=== PATIENT | male | born 1985 | race Caucasian/White ===

== ENCOUNTER → 2016-10-08 | Outpatient (CLI) | payer BC ==
[2016-10-08 19:17] LABS: ALT 68 U/L (21-72); AST 32 U/L (17-59); Alkaline Phosphatase 110 U/L (38-126); Anion Gap 14 mmol/L; Blood Urea Nitrogen 17 mg/dL (9-20); Calcium 10.1 mg/dL (8.4-10.2); Carbon Dioxide 28 mmol/L (22-30); Chloride 102 mmol/L (98-107); Cholesterol 227 mg/dL (<200); Glucose 85 mg/dL (74-99); HDL Cholesterol 46 mg/dL (40-60); Non-African American GFR(MDRD) >60 (>60 ml/min/1.73 sqM); Potassium 4.2 mmol/L (3.5-5.1); Sodium 144 mmol/L (137-145); Total Bilirubin 1.1 mg/dL (0.2-1.3); Total Protein 8.4 g/dL (6.3-8.2); Triglycerides 183 mg/dL (<150)
[2016-10-08 19:26] LABS: Basophils # (A) 0.1 k/uL (0-0.2); Basophils % (A) 1 %; CH 29.9; CHCM 33.4; Eosinophils # (A) 0.2 k/uL (0-0.7); Eosinophils % (A) 3 %; HCT 49.8 % (39.0-53.0); Luc % (Auto) 2; Lymphocytes # (A) 1.7 k/uL (1.0-4.8); Lymphocytes % (A) 27 %; MCH 28.9 pg (25.0-35.0); MCHC 32.2 g/dL (31.0-37.0); MCV 89.8 fL (80.0-100.0); Mean Platelet Volume 8.6; Monocytes # (A) 0.3 k/uL (0-1.0); Monocytes % (A) 4 %; Neutrophils % (A) 63 %; RBC 5.55 m/uL (4.30-5.90); RDW 13.2 % (11.5-15.5); WBC 6.4 k/uL (3.8-10.6); WBC (Perox) 6.48
== END ==
LOC: MMGSC 10:27
PROVIDERS: ATTEND Family Medicine
DX: I10 Essential (primary) hypertension (principal); E78.5 Hyperlipidemia, unspecified
CPT/HCPCS: 36415; 80053; 80061; 84439; 84443; 85025

== ENCOUNTER → 2022-06-12 | Outpatient (CLI) | payer BC ==
--- NOTE | 2022-06-12 08:41 | US ---
EXAMINATION TYPE: US liver DATE OF EXAM: 06/12/2022 COMPARISON: CT abdomen pelvis 01/03/2011. CLINICAL HISTORY: R94.5 ABN RESULTS OF LIVER FUNCTION STUDIES. TECHNIQUE: Multiple sonographic images of the right upper quadrant are obtained. FINDINGS: EXAM MEASUREMENTS: Liver Length: 15.9 cm Gallbladder Wall: 0.13 cm CBD: 0.39 cm Right Kidney: 11.8 x 4.6 x 5.1 cm Pancreas: Tail obscured by overlying bowel gas Liver: Slightly heterogeneous, echogenic. No focal mass. Gallbladder: Slightly mobile echogenic foci 1.1cm . No pericardial fluid or wall thickening. Evidence for sonographic Alas's sign: No CBD: wnl Right Kidney: wnl . No hydronephrosis, shadowing calculi, or contour deforming solid mass. IMPRESSION: 1. Heterogenous hyperechoic appearance to the liver without focal mass. This is most commonly is see n with hepatic steatosis. 2. Cholelithiasis without evidence for acute cholecystitis.
== END | disposition home or self-care (01) ==
LOC: RADUSWWP 06:43
PROVIDERS: ATTEND Family Medicine
DX: K80.20 Calculus of gallbladder without cholecystitis without obstruction (principal); R94.5 Abnormal results of liver function studies
CPT/HCPCS: 76705

== ENCOUNTER → 2024-09-17 | Outpatient (CLI) | payer BC ==
--- NOTE | 2024-09-17 08:05 | US ---
EXAMINATION TYPE: US abdomen limited DATE OF EXAM: 09/17/2024 COMPARISON: 06/12/22 CLINICAL INDICATION: Male, 38 years old with history of R10.11 right upper quadrant pain; RUQ pain TECHNIQUE: Grayscale and color Doppler imaging of the right upper quadrant was performed. FINDINGS: EXAM MEASUREMENTS: Liver Length: 14.6 cm Gallbladder Wall: 0.2 cm CBD: 0.4 cm Right Kidney: 10.6 x 5.3 x 5.1 cm PRODUCT ANALYST NOTES: Pancreas: tail obscured by overlying bowel gas Liver: wnl Gallbladder: One singular gallstone seen in neck measuring 2.0cm Evidence for sonographic Alas's sign: No CBD: wnl Right Kidney: wnl The visualized portions of the pancreas are unremarkable. The tail is obscured by overlying bowel gas . Liver is unremarkable without focal lesion. Single large gallstone within the gallbladder neck pedro pablo uring 2.0 cm. No wall thickening or surrounding fluid. Negative sonographic Alas's sign. Common marj e duct is within normal limits. Right kidney demonstrates no hydronephrosis, solid mass, shadowing ca lculus. IMPRESSION: Cholelithiasis without ultrasound evidence for acute cholecystitis. [facility] Germán Montemayor, , 09/17/2024 8:02 AM
== END | disposition home or self-care (01) ==
LOC: RADUSWWP 07:15
PROVIDERS: ATTEND Family Medicine
DX: K80.20 Calculus of gallbladder without cholecystitis without obstruction (principal)
CPT/HCPCS: 76705

== ENCOUNTER 2025-01-04 08:36 | Day surgery (SDC) | payer BC ==
[~2025-01-04 08:36] MED LIST: HYDROmorphone 0.5 MG/0.5 ML SYRINGE IVP PRN; LIDOCAINE 1% (10MG/ML) FOR IV START INTRADERMA PRN; droPERidol 2.5 MG/ML VIAL IVP ONE
--- NOTE | 2025-01-04 09:04 | P.GSHP ---
History of Present Illness H&P Date: 01/04/25 Chief Complaint: Chronic cholecystitis 39-year-old male here for elective cholecystectomy. Patient last seen in the office in October. Patient has had intermittent right upper quadrant pains. Ultrasound shows a 2 cm gallstone in the neck of the gallbladder. He has intermittently had some elevated liver enzymes. Per patient recent labs were normal. Denies any change in the color of his skin urine or stool. Past Medical History Past Medical History: COPD, Hypertension, Sleep Apnea/CPAP/BIPAP Additional Past Medical History / Comment(s): seasonal allergies. dx copd long ago - no inhalers now. asthma r/t allergies no meds. 2nd hand smoke as a youth. hx of cpap use, recent wt loss .retested- awaiting results History of Any Multi-Drug Resistant Organisms: None Reported Additional Past Surgical History / Comment(s): colonscopy, wisdom teeth Past Anesthesia/Blood Transfusion Reactions: No Reported Reaction Smoking Status: Never smoker - Past Family History Mother Additional Family Medical History / Comment(s): pulmonary issues, x smoker Father Additional Family Medical History / Comment(s): x smoker Medications and Allergies Home Medications Medication Instructions Recorded Confirmed Type ALPRAZolam [Xanax] 0.5 mg PO DAILY PRN 12/30/24 12/30/24 History Cetirizine HCl [Zyrtec] 10 mg PO DAILY 12/30/24 12/30/24 History Losartan Potassium 50 mg PO DAILY 12/30/24 12/30/24 History Nasocort 1 spray NASAL DIRECTED PRN 12/30/24 12/30/24 History Unk Melatonin 1 tab PO HS 12/30/24 12/30/24 History amLODIPine BESYLATE [Amlodipine 5 mg PO DAILY 12/30/24 12/30/24 History Besylate] cloNIDine HCL [Clonidine HCl] 0.1 mg PO BID 12/30/24 12/30/24 History Allergies Allergy/AdvReac Type Severity Reaction Status Date / Time acetaminophen Allergy n/v , Verified 01/04/25 08:59 headaches diphenhydramine Allergy Rash/Hives Verified 01/04/25 08:59 Surgical - Exam Physical exam: General: Well-developed, well-nourished HEENT: Normocephalic, sclerae nonicteric Abdomen: Nontender, nondistended Extremities: No edema Neuro: Alert and oriented Assessment and Plan (1) Chronic cholecystitis Narrative/Plan: Will proceed with laparoscopic, possible open cholecystectomy at this time. Risks of bleeding, infection, bile leak, bile duct injury, retained common bile duct stone, trocar injury, conversion to an open procedure, hernia, anesthesia related complications were reviewed. The patient understands and wishes to proceed. Current Visit: Yes Status: Acute Code(s): K81.1 - CHRONIC CHOLECYSTITIS SNOMED Code(s): 43298507
[2025-01-04] MEDS: LACTATED RINGERS 1,000 ML IV SCH (09:10)
[2025-01-04] MEDS: IV FLUID CONTINUATION 1,000 ML IV ONE (09:10)
[2025-01-04] MEDS: HEPARIN SODIUM,PORCINE 5,000 UNIT/ML 1 ML VIAL SQ PRN (09:26)
[2025-01-04] MEDS: DEXAMETHASONE SOD PHOSPHATE 4 MG/ML 1 ML VIAL IV ONE (09:27)
[2025-01-04] MEDS: ONDANSETRON 4 MG/2 ML VIAL IVP ONE (09:27)
[2025-01-04] MEDS ORDERED: KETOROLAC 15 MG/ML 1 ML VIAL ONE (09:53)
[2025-01-04] MEDS ORDERED: PHENYLEPHRINE-0.9% NACL SYG 1,000 MCG/10 ML SYRINGE ONE (09:53)
[2025-01-04] MEDS ORDERED: HYDROmorphone (PF) 1 MG/ML ONE (09:53)
[2025-01-04] MEDS ORDERED: LIDOCAINE 1% INJ 10MG/ML (20 ML MDV) ONE (09:53)
[2025-01-04] MEDS ORDERED: SUCCINYLCHOLINE CHLORIDE 200 MG/10 ML VIAL IV ONE (09:53)
[2025-01-04] MEDS ORDERED: PROPOFOL 10 MG/ML 20 ML VIAL IV ONE (09:53)
[2025-01-04] MEDS ORDERED: GLYCOPYRROLATE 0.2 MG/ML 2 ML VIAL ONE (09:53)
[2025-01-04] MEDS ORDERED: fentaNYL (PF) 50 MCG/ML 2 ML AMP ONE (09:53)
[2025-01-04] MEDS ORDERED: MIDAZOLAM 2 MG/2 ML VIAL ONE (09:53)
[2025-01-04] MEDS ORDERED: ROCURONIUM 10 MG/ML (5 ML VIAL) IV ONE (09:53)
[2025-01-04] MEDS ORDERED: NEOSTIGMINE 1 MG/ML 10 ML VIAL ONE (09:53)
[2025-01-04 10:05] LABS: ALT 38 U/L (4-49); AST 26 U/L (17-59); African American GFR (CKD) >90 (>60 ml/min/1.73 sqM); Albumin 4.5 g/dL (3.5-5.0); Alkaline Phosphatase 89 U/L (38-126); Anion Gap 11 mmol/L; Blood Urea Nitrogen 21 mg/dL (9-20); Calcium 9.7 mg/dL (8.4-10.2); Carbon Dioxide 26 mmol/L (22-30); Chloride 102 mmol/L (98-107); Glucose 89 mg/dL (74-99); Non-African American GFR(CKD) >90 (>60 ml/min/1.73 sqM); Potassium 4.2 mmol/L (3.5-5.1); Sodium 139 mmol/L (137-145); Total Protein 7.1 g/dL (6.3-8.2)
[2025-01-04] MEDS: BUPIVACAINE (PF) 0.25% 30 ML VIAL SQ ONE (10:21)
[2025-01-04 11:14] VITALS: TEMP 97
--- NOTE | 2025-01-04 11:16 | P.OP ---
Date of Procedure: 01/04/25 Procedure(s) Performed: PREOPERATIVE DIAGNOSIS: Chronic cholecystitis POSTOPERATIVE DIAGNOSIS: Same PROCEDURE: Laparoscopic cholecystectomy SURGEON: Jeaneth EBL: Minimal see anesthesia record ANESTHESIA: Gen. COMPLICATIONS: None OPERATIVE PROCEDURE: The patient was brought and placed on the operating room table in the supine position. The patient was placed under general anesthesia at that time. The abdomen was prepped and draped in the usual sterile fashion. A small vertical infraumbilical incision was made. The fascia was grasped with the Shannan forceps. The fascia was retracted anteriorly. The Veress needle was advanced into the peritoneal cavity. The saline drop test was normal. Insufflation took place up to 15 mmHg. A 5 mm optical trocar was advanced and the peritoneal cavity. 2 additional 5 mm trochars were placed in the right upper quadrant under direct visualization. A 12 mm trocar was advanced into the epigastric incision site. The gallbladder was retracted superiorly and laterally. The peritoneum overlying the infundibulum was bluntly dissected. The patient's cystic duct was visualized. The junction between the cystic duct common and hepatic duct was identified. The critical view of safety was achieved after blunt dissection. The cystic duct was then divided after placement of 3 12 mm clips on the patient's side and one on the specimen side. The cystic artery was identified and clipped as well. A small vessel was seen along the gallbladder fossa and clipped as well. The gallbladder was then removed from the liver bed using electrocautery. The gallbladder was then removed from the epigastric trocar site with an Endo Catch bag. The gallbladder fossa was irrigated with saline. There was no evidence of any bleeding or biliary drainage seen. The fascia at the 12 millimeter site was closed using a Win-Lily 0 Vicryl stitch. The trochars were then removed. The skin at all 4 sites was closed using a 4-0 Monocryl stitch. Skin glue was utilized on the incision sites. At the end of this procedure the sponge and needle counts were correct. DISPOSITION: Stable to the recovery room
[2025-01-04] MEDS ORDERED: ACETAMINOPHEN TAB 325 MG TAB PO SCH (12:00)
[2025-01-04 12:41] VITALS: BP 141/97; PULSE 71; RESP 16
[2025-01-04] MEDS ORDERED: IBUPROFEN 600 MG TAB PO SCH (16:00)
== END 2025-01-04 12:50 | disposition home or self-care (01) ==
LOC: OR 08:36
PROVIDERS: ATTEND Surgery
DX: K80.10 Calculus of gallbladder with chronic cholecystitis without obstruction (principal); I10 Essential (primary) hypertension; G47.33 Obstructive sleep apnea (adult) (pediatric); J44.9 Chronic obstructive pulmonary disease, unspecified; Z79.899 Other long term (current) drug therapy; Z87.19 Personal history of other diseases of the digestive system; Z88.8 Allergy status to other drugs, medicaments and biological substances; Z88.6 Allergy status to analgesic agent
CPT/HCPCS: 47562; 88304; 80053; J2250; J0330; J1644; J1100; J2710; J0690; J2405; J2003; J3010; J1171; J1885; J2704; J2371; J0665; J1596